=== PATIENT | female | born 1970 | race Caucasian/White ===

== ENCOUNTER 2024-05-28 09:43 | Outpatient (CLI) | payer OTHER, SELFPAY | END 2024-05-28 09:44 | disposition home or self-care (01) | PROVIDERS: PCP Physician Assistant Medical; Visit Provider Physician Assistant Medical | DX: R10.9 Unspecified abdominal pain (principal); R19.4 Change in bowel habit | CPT/HCPCS: 80053; 80061; 82607; 83690; 84443; 86231; 86258; 86364 ==